=== PATIENT | female | born 1950 | race Two or more races ===

== ENCOUNTER 2017-05-22 09:55 | Outpatient (CLI) | payer BC ==
[2017-05-22] MEDS ORDERED: GADOVERSETAMIDE 2.5 MMOL/5 ML VIAL IJ ONE (09:56)
== END 2017-05-22 23:59 | disposition home or self-care (01) ==
LOC: MRI 09:55
PROVIDERS: ATTEND Family Medicine
DX: D35.2 Benign neoplasm of pituitary gland (principal); J32.9 Chronic sinusitis, unspecified; R90.82 White matter disease, unspecified
CPT/HCPCS: 70553; A9579

== ENCOUNTER 2018-12-05 09:41 | Outpatient (CLI) | payer BC ==
[2018-12-05] MEDS ORDERED: GADODIAMIDE 5 MMOL/10 ML VIAL ONE (12:41)
[2018-12-05] MEDS ORDERED: GADODIAMIDE 2.5 MMOL/5 ML VIAL ONE (12:41)
== END 2018-12-05 23:59 | disposition home or self-care (01) ==
LOC: MRI 09:41
PROVIDERS: ATTEND Family Medicine
DX: D35.2 Benign neoplasm of pituitary gland (principal); I67.82 Cerebral ischemia
CPT/HCPCS: 70542; A9579 ×2